=== PATIENT | male | born 1960 | race Caucasian/White ===

== ENCOUNTER 2021-03-23 10:14 | Emergency (ER) | payer OTHER ==
[2021-03-23] MEDS ORDERED: NAPROXEN500 MG PO (11:37)
[2021-03-23] MEDS ORDERED: CYCLOBENZAPRINE10 MG PO (11:37)
== END 2021-03-23 13:30 | disposition home or self-care (01) ==
LOC: FER 10:14
DX: S39.012A Strain of muscle, fascia and tendon of lower back, initial encounter (principal); J44.9 Chronic obstructive pulmonary disease, unspecified; F17.210 Nicotine dependence, cigarettes, uncomplicated; Z88.5 Allergy status to narcotic agent; W19.XXXA Unspecified fall, initial encounter; Y92.009 Unspecified place in unspecified non-institutional (private) residence as the place of occurrence of the external cause
CPT/HCPCS: 72110; J1885

== ENCOUNTER 2021-04-01 17:57 | Emergency (ER) | payer OTHER ==
[~2021-04-01 17:57] MED LIST: CYCLOBENZAPRINE10 MG PO; NAPROXEN500 MG PO
[2021-04-01 20:08] LABS: BASOPHIL 0.5 % (0-2); EOSINOPHIL 1.9 % (0-5); HCT 26.7 % (42.0-52.0); HGB 7.6 g/dl (13.2-18.0); LYMPHOCYTE 23.7 % (15-48); MCH 17.4 pg (25.0-31.0); MCHC 28.5 g/dL (32.0-36.0); MCV 61.2 fL (78.0-100.0); NEUTROPHIL 63.5 % (41-80); NRBC 0; PLT 221 K/uL (150-400); RBC 4.36 M/uL (4.70-6.00); WBC 9.9 K/uL (4.0-10.5)
[2021-04-01 20:15] LABS: INR 1.06 (0.9-1.2); PROTHROMBIN TIME 13.1 SECONDS (11.4-13.6)
[2021-04-01 20:23] LABS: ALBUMIN 3.9 g/dL (3.4-5.0); BILIRUBIN - TOTAL 0.3 mg/dL (0.2-1.0); BUN/CREAT RATIO (CALC) 19.3 RATIO; CREATININE 0.83 mg/dL (0.67-1.17); GLOBULIN (CALCULATION) 3.9 g/dL; POTASSIUM 4.5 mmol/L (3.5-5.1); TOTAL PROTEIN 7.8 g/dL (6.4-8.2)
[2021-04-01 21:13] LABS: BILIRUBIN NEGATIVE (NEGATIVE); BLOOD NEGATIVE Ery/uL (NEGATIVE); CLARITY CLEAR (CLEAR); COLOR YELLOW (YELLOW); GLUCOSE (U) NORMAL (NORMAL); LEUKOCYTES NEGATIVE Leu/uL (NEGATIVE); NITRITE NEGATIVE (NEGATIVE); PROTEIN NEGATIVE (NEGATIVE); UROBILINOGEN 0.2 mg/dL (0.2-1.0)
[2021-04-01] MEDS ORDERED: FEOSOL325 MG PO (21:38)
== END 2021-04-01 21:54 | disposition home or self-care (01) ==
LOC: FER 17:57
PROVIDERS: Emergency Medicine
DX: D50.8 Other iron deficiency anemias (principal); R07.81 Pleurodynia; J44.9 Chronic obstructive pulmonary disease, unspecified; F17.210 Nicotine dependence, cigarettes, uncomplicated; Z79.51 Long term (current) use of inhaled steroids; Z88.5 Allergy status to narcotic agent; Z20.822 Contact with and (suspected) exposure to COVID-19
CPT/HCPCS: 36415; 71045; 80053; 81003; 83540; 83605; 84145; 84484; 85025; 85610; 85730; 87040; 93005; U0002

== ENCOUNTER 2021-07-18 15:27 | Emergency (ER) | payer OTHER ==
[~2021-07-18 15:27] MED LIST changes: +FEOSOL325 MG PO
[2021-07-18 17:27] LABS: BASOPHIL 0.3 % (0-2); EOSINOPHIL 0 % (0-5); HGB 15.5 g/dl (13.2-18.0); LYMPHOCYTE 24.6 % (15-48); MCH 28.2 pg (25.0-31.0); MCHC 33.7 g/dL (32.0-36.0); MCV 83.6 fL (78.0-100.0); MONOCYTE 14.5 % (0-12); NEUTROPHIL 60.3 % (41-80); NRBC 0; PLT 100 K/uL (150-400); RDW 15.6 % (11.5-14.0); WBC 7.8 K/uL (4.0-10.5)
[2021-07-18 17:40] LABS: ALBUMIN 3.8 g/dL (3.4-5.0); BILIRUBIN - TOTAL 0.3 mg/dL (0.2-1.0); BUN/CREAT RATIO (CALC) 18.6 RATIO; CREATININE 0.86 mg/dL (0.67-1.17); POTASSIUM 3.9 mmol/L (3.5-5.1); TOTAL PROTEIN 7.8 g/dL (6.4-8.2)
[2021-07-19] MEDS ORDERED: MEDROL 4MG DOSEP4 MG PO (05:47)
[2021-07-19] MEDS ORDERED: ONDANSETRON ODT4 MG PO (05:47)
[2021-07-19] MEDS ORDERED: VENTOLIN HFA18 GM INH (05:47)
[2021-07-19] MEDS ORDERED: VIBRAMYCIN100 MG PO (05:47)
[2021-07-19] MEDS ORDERED: AUGMENTIN 875-1 EACH PO (05:47)
== END 2021-07-19 07:46 | disposition home or self-care (01) ==
LOC: FER 15:27
PROVIDERS: Emergency Medicine
DX: U07.1 COVID-19 (principal); J12.82 Pneumonia due to coronavirus disease 2019; I10 Essential (primary) hypertension; J44.9 Chronic obstructive pulmonary disease, unspecified; F17.200 Nicotine dependence, unspecified, uncomplicated
CPT/HCPCS: 36415; 71046; 71275; 80053; 84484; 85025; 93005; J0692; J2405; J2930; J7030; Q0244; Q9967; U0002